=== PATIENT | male | born 1975 | race Caucasian/White ===

== ENCOUNTER 2022-01-31 14:58 | Emergency (ER) | payer OTHER, SELFPAY ==
--- NOTE | ~2022-01-31 | CT_ITS ---
EXAMINATION: CT CERVICAL SPINE WITHOUT CONTRAST CLINICAL INFORMATION: Fall. Pain. COMPARISON: Cervical spine MRI May 2017 TECHNIQUE: Axial images through the cervical spine without contrast. Sagittal and coronal reconstructions on the technologist workstation were performed. This CT examination was performed using dose optimization techniques as appropriate, variously including the following: *Automated exposure control *Adjustment of mA and/or kV according to patient size (this includes techniques or standardized protocols for targeted exams where dose is matched to indication/reason for exam; i.e. extremities or head) *Use of iterative reconstruction technique DLP: 543 mGy-cm FINDINGS: Bone alignment is normal. No fracture or dislocation is seen. There is postsurgical change following laminectomy at C5 and C6. There is degenerative disc disease at C5-C6. There is degenerative spondylosis at C4-C5 C5-C6 and C6-C7. Prevertebral soft tissues are normal. Visualized lung apices are clear. CT/CT cervical spine wo con IMPRESSION: No fracture or dislocation. Postsurgical changes following laminectomy at C5-C6. Degenerative changes. Fleischner guidelines were followed.
--- NOTE | ~2022-01-31 | CT_ITS ---
EXAMINATION: CT HEAD WITHOUT CONTRAST CLINICAL INFORMATION: Fall COMPARISON: None TECHNIQUE: Contiguous axial imaging was performed from the skull base to vertex without intravenous administration of contrast. This CT examination was performed using dose optimization techniques as appropriate, variously including the following: *Automated exposure control *Adjustment of mA and/or kV according to patient size (this includes techniques or standardized protocols for targeted exams where dose is matched to indication/reason for exam; i.e. extremities or head) *Use of iterative reconstruction technique DLP: 831 mGy-cm FINDINGS: There is no evidence of acute intracranial hemorrhage or territorial infarction. No abnormal mass effect or midline shift is seen. Chase to white matter differentiation is well preserved. No extra-axial fluid collections are identified. The ventricles are normal in size. There is no abnormal attenuation within the brain parenchyma. The osseous structures and soft tissues are normal. The mastoid air cells and visualized portions of the paranasal sinuses are well aerated. CT/CT head/brain wo con IMPRESSION: No acute intracranial pathology.
--- NOTE | ~2022-01-31 | CT_ITS ---
EXAMINATION: CT LUMBAR SPINE WITHOUT CONTRAST CLINICAL INFORMATION: Fall. Back pain. COMPARISON: None available. TECHNIQUE: Multidetector helical imaging of the lumbar spine was obtained without intravenous contrast. Multiple axial reformats and coronal/sagittal reconstructions were created the technologist workstation for review. This CT examination was performed using dose optimization techniques as appropriate, variously including the following: *Automated exposure control. *Adjustment of mA and/or kV according to patient size (this includes techniques or standardized protocols for targeted exams where dose is matched to indication/reason for exam; i.e. extremities or head). *Use of iterative reconstruction technique. DLP: 633 mGy-cm FINDINGS: Transitional vertebral anatomy. There is a small right-sided rib associated with the T12 level. There is sacralization of L5 with pseudoarticulation of the L5 transverse processes with the sacral alae. Instrumented posterior fusion of T10 through the pelvis with bilateral paired interpedicular screws at T10-L1, L5, and S1. There are also bilateral innominate bone screws associated with the fusion construct. Status post total L2 and L3 corpectomies as well as partial L1 and L4 corpectomies. The posterior elements of L2-L4 have also largely been resected. Bone graft material within the corpectomy cavity bridging the remnant of the L1 and L4 vertebral bodies. There is a L4-L5 disc spacer in place. Left lateral fusion hardware with 2 parallel screw and mannie constructs from L1-L4. Minimally displaced fracture of the left-sided posterior fusion mannie above the left-sided L5 screw. No evidence of additional hardware fracture. Minimal lucency surrounding the left-sided T10 screw. No additional evidence of hardware loosening. No demonstrated acute fracture or traumatic subluxation. The lower thoracic spine vertebral body heights are maintained. No evidence of acute fracture of the sacrum. No demonstrated suspicious lytic or sclerotic osseous lesions. Moderate subcutaneous edema within the soft tissues of the back related to the prior surgery. Evaluation of the spinal canal is highly limited secondary to beam hardening artifact from the patient's hardware. Splenomegaly. Otherwise, limited evaluation of the intra-abdominal structures without significant abnormalities. Infrarenal IVC filter in place. The abdominal aorta is of normal contour and caliber with moderate calcific atherosclerotic disease. CT/CT lumbar spine wo con IMPRESSION: Extensive fusion hardware from T10 through the pelvis. Near complete resections of the L2 and L3 vertebrae. There are also been partial corpectomies of the L1 and L4 vertebrae. Bone graft material is positioned bridging the remnant L1 and L4 vertebral bodies. There is a minimally displaced fracture of the left-sided posterior fusion mannie just above the left-sided L5 screw. There is evidence of minimal loosening of the left-sided T10 screw. No evidence of additional hardware loosening or fractures. On this limited exam without intrathecal contrast, there are no additional demonstrated acute abnormalities of the lumbar spine. No overt acute fracture or traumatic subluxation. Nonspecific splenomegaly.
--- NOTE | ~2022-01-31 | CT_ITS ---
EXAMINATION: CT THORACIC SPINE WITHOUT CONTRAST CLINICAL INFORMATION: Fall. Back pain. COMPARISON: None TECHNIQUE: Axial images through the thoracic spine without contrast. Sagittal and coronal reconstructions on the technologist workstation were performed. This CT examination was performed using dose optimization techniques as appropriate, variously including the following: *Automated exposure control *Adjustment of mA and/or kV according to patient size (this includes techniques or standardized protocols for targeted exams where dose is matched to indication/reason for exam; i.e. extremities or head) *Use of iterative reconstruction technique DLP: 603 mGy-cm FINDINGS: Bone alignment is normal. No fracture or dislocation is seen. There is posterior fusion hardware with rods and interpedicular screws at T12, T11 and T10. There is mild degenerative spondylosis of the midthoracic spine. There is a focal pleural thickening that is incompletely visualized adjacent to the left upper lobe. There is peripheral or subpleural left lower lobe atelectasis or consolidation. There is a small 2 mm right upper lobe nodule. CT/CT thoracic spine wo con IMPRESSION: No fracture or dislocation. Postsurgical changes to the lower thoracic spine. Left lower lobe peripheral or subpleural atelectasis or consolidation and pleural thickening adjacent to the left upper lobe. Small right upper lobe pulmonary nodule. Fleischner guidelines were followed.
[2022-01-31 15:10] VITALS: BP 170/103; PULSE 99; O2SAT 100
[2022-01-31 15:14] VITALS: BP 150/98; PULSE 99; RESP 16; TEMP 37; O2SAT 100
[2022-01-31 15:16] VITALS: PULSE 99; RESP 16; TEMP 37; O2SAT 100; BMI 25.8
--- NOTE | 2022-01-31 15:17 | ED_ITS ---
HPI - General Adult General Chief complaint: Psychiatric Symptoms <DULCE Jeffery - Last Filed: 01/31/22 21:31> Stated complaint: OPIOID WITHDRAWAL ,WANTS HELP, W/C BOUND <DULCE Jeffery - Last Filed: 01/31/22 21:31> Time Seen by Provider: 01/31/22 15:17 <DULCE Jeffery - Last Filed: 01/31/22 21:31> Source: patient <DULCE Jeffery - Last Filed: 01/31/22 21:31> Mode of arrival: ambulatory <DULCE Jeffery - Last Filed: 01/31/22 21:31> Limitations: no limitations <DULCE Jeffery Last Filed: 01/31/22 21:31> History of Present Illness HPI narrative: Patient is a 46 year old male presenting to the emergency department today with generalized pain and possible opioid withdrawal. Patient states that a few days ago, he fell from sitting after taking his suboxone, and now his back hurts. Patient denies any lsos of conciousness with the incident. Patient states that he wants to be started back on Methadone but does not want to go to the clinic every day. Patient states that he has had multiple back surgeries at [facility] in [place] and he is concerned that since his back is hurting more now, something may be wrong. Patient states that he is supposed to be on Eliquis for blood clots and he has not been taking it because he hasn't had his medications in 10 days. Patient describes his back pain as in the middle to low part of his back, non-radiating, dull, and a 4/10 on the pain scale. Patient denies any dizziness, lightheadedness, abdominal pain, nausea, vomiting, fever, chills, blurry vision, double vision, loss of vision, chest pain, difficulty breathing, shortness of breath, night sweats, pain with urination, increased urinary frequency, increased urinary urgency, blood in his urine or stool, syncope or a near syncopal episode,, bowel incontinence, bladder incontinence, bowel retention, bladder retention, or any other complaints at this time. <DULCE Jeffery Last Filed: 01/31/22 21:31> Onset (ago): day(s) <DULCE Jeffery - Last Filed: 01/31/22 21:31> Location: back <DULCE Jeffery - Last Filed: 01/31/22 21:31> Radiation: non-radiation <DULCE Jeffery - Last Filed: 01/31/22 21:31> Severity: mild <DULCE Jeffery - Last Filed: 01/31/22 21:31> Severity scale (1-10): 4 <DULCE Jeffrey - Last Filed: 01/31/22 21:31> Quality: dull <DULCE Jeffery - Last Filed: 01/31/22 21:31> Pain Consistency: constant <DULCE Jeffery - Last Filed: 01/31/22 21:31> Relieving factors: none <DULCE Jeffery - Last Filed: 01/31/22 21:31> Exacerbating factors: movement <DULCE Jeffery - Last Filed: 01/31/22 21:31> Associated symptoms: denies other symptoms <DULCE Jeffery - Last Filed: 01/31/22 21:31> Related Data Allergies/adverse reactions: Allergies Allergy/AdvReac Type Severity Reaction Status Date / Time fish derived AdvReac Unknown VOMIT Unverified 08/06/20 14:38 Penicillins [PENICILLINS] AdvReac Unknown VOMIT Unverified 08/06/20 14:38 <DULCE Jeffery - Last Filed: 01/31/22 21:31> Review of Systems Constitutional: Constitutional: Reports no additional constitutional complaints, Denies chills, Denies fever(s) and Denies night sweats <DULCE Jeffery - Last Filed: 01/31/22 21:31> Eyes: Eyes: Reports no additional eye complaints, Denies blurry vision, Denies change in vision, Denies diplopia, Denies eye discharge, Denies loss of vision and Denies eye pain <DULCE Jeffery - Last Filed: 01/31/22 21:31> ENT: Denies dizziness <DULCE Jeffery - Last Filed: 01/31/22 21:31> Cardiovascular: Cardiovascular: Reports no additional cardiovascular complaints, Denies chest pain, Denies lightheadedness, Denies Loss of Consciousness and Denies dyspnea <DULCE Jeffery - Last Filed: 01/31/22 21:31> Respiratory: Respiratory: Reports no additional respiratory complaints and Denies dyspnea <DULCE Jeffery - Last Filed: 01/31/22 21:31> Gastrointestinal: Gastrointestinal: Reports no additional gastrointestinal complaints, Denies abdominal pain, Denies melena, Denies hematochezia, Denies change in bowel habits and Denies change in stool character <DULCE Jeffery - Last Filed: 01/31/22 21:31> Genitourinary: Genitourinary: Reports no additional male genitourinary complaints, Denies hematuria, Denies oliguria, Denies difficulty urinating, Denies dysuria, Denies urinary frequency, Denies urinary hesitancy, Denies urinary incontinence and Denies urinary urgency <DULCE Jeffery - Last Filed: 01/31/22 21:31> Musculoskeletal: Musculoskeletal: Reports no additional musculoskeletal complaints, Reports back pain, Denies numbness and Denies tingling <DULCE Jeffery - Last Filed: 01/31/22 21:31> Neurologic: Denies dizziness, Denies loss of vision, Denies numbness and Denies tingling <DULCE Jeffery - Last Filed: 01/31/22 21:31> Psychiatric: Psychiatric: Reports no additional psychiatric complaints <DULCE Jeffery Last Filed: 01/31/22 21:31> Endocrine: Endocrine: Reports no additional endocrine complaints <DULCE Jeffery - Last Filed: 01/31/22 21:31> Hematologic/Lymphatic: Hematologic/Lymphatic: Reports no additional hematologic/lymphatic complaints <DULCE Jeffery - Last Filed: 01/31/22 21:31> Allergic/Immunologic: Allergic/Immunologic: Reports no additional allergic/immunologic complaints <DULCE Jeffery - Last Filed: 01/31/22 21:31> PMFSH Past Medical History Attestation statement: The following information was validated with the patient. <DULCE Jeffery - Last Filed: 01/31/22 21:31> Source: old records reviewed <DULCE Jeffery Last Filed: 01/31/22 21:31> Social History Social History: Social History Alcohol intake: never Patient Tobacco Use Status: Current everyday Tobacco user Use of substances other than those prescribed or required for medical reasons: Yes Substance Use Type: Crack/Cocaine and Opiates Last Used Substance: Days (ago) Any prior treatment program specific to substance use: Yes Advance Directives: No Advance Directives Information Provided: No <DULCE Jeffery - Last Filed: 01/31/22 21:31> Physical Exam ED Vital Signs: Vital Signs - 24 hr 01/31/22 15:14 01/31/22 15:16 01/31/22 18:00 Temperature 98.6 F 98.6 F Pulse Rate 99 99 90 Respiratory Rate 16 16 20 Blood Pressure 150/98 H 141/79 H Pulse Oximetry 100 100 100 01/31/22 20:00 01/31/22 20:08 Temperature Pulse Rate 91 Respiratory Rate 16 Blood Pressure 141/79 H Pulse Oximetry 99 BMI result Body Mass Index 25.8 <DULCE Jeffery - Last Filed: 01/31/22 21:31> Vital Signs - 24 hr 01/31/22 15:14 01/31/22 15:16 01/31/22 18:00 Temperature 98.6 F 98.6 F Pulse Rate 99 99 90 Respiratory Rate 16 16 20 Blood Pressure 150/98 H 141/79 H Pulse Oximetry 100 100 100 01/31/22 20:00 01/31/22 20:08 Temperature Pulse Rate 91 Respiratory Rate 16 Blood Pressure 141/79 H Pulse Oximetry 99 BMI result Body Mass Index 25.8 <Reji Dixon MD - Last Filed: 01/31/22 18:40> Const General: cooperative, no acute distress, alert and awake <DULCE Jeffery - Last Filed: 01/31/22 21:31> Nutritional Appearance: well nourished <DULCE Jeffery - Last Filed: 01/31/22 21:31> Orientation/consciousness: patient oriented x3 <DULCE Jeffery - Last Filed: 01/31/22 21:31> Limitations: no limitations <DULCE Jeffery - Last Filed: 01/31/22 21:31> HENMT Head: Yes normal to inspection and Yes atraumatic <DULCE Jfefery - Last Filed: 01/31/22 21:31> Ears: hearing grossly normal bilaterally and external ears normal <Lupe Wilde PA - Last Filed: 01/31/22 21:31> General nose exam: Normal external nose present, no nasal discharge noted and no epistaxis <Lupe Wilde PA - Last Filed: 01/31/22 21:31> Face and sinus: Yes normal facial exam, No abrasion and No laceration <Lupe Wilde PA - Last Filed: 01/31/22 21:31> Mouth: Normal oral and palatal mucosa present, no drooling and no muffled voice <Lupe Wilde PA - Last Filed: 01/31/22 21:31> Eyes General: appearance normal, both eyes and all related structures <Lupe Wilde PA - Last Filed: 01/31/22 21:31> Periorbital: periorbital findings normal <Lupe Wilde PA - Last Filed: 01/31/22 21:31> Eyelids: Yes eyelids normal <Lupe Wilde PA - Last Filed: 01/31/22 21:31> Conjunctivae: conjunctivae normal <Lupe Wilde PA - Last Filed: 01/31/22 21:31> Pupils: Equal, round and reactive pupils present <Lupe Wilde PA - Last Filed: 01/31/22 21:31> EOM: EOMs intact bilaterally <Lupe Wilde PA - Last Filed: 01/31/22 21:31> Neck Neck: Yes normal visual inspection, Yes full ROM and Yes no lymphadenopathy <Lupe Wilde PA - Last Filed: 01/31/22 21:31> Chest Chest palpation & inspection: normal inspection of the chest <DULCE Jeffery - Last Filed: 01/31/22 21:31> Resp Effort & Inspection: normal respiratory effort and able to speak in complete sentences <DULCE Jeffery - Last Filed: 01/31/22 21:31> Auscultation: clear to auscultation bilaterally <DULCE Jeffery - Last Filed: 01/31/22 21:31> Cardio Rate: regular rate <DULCE Jeffery - Last Filed: 01/31/22 21:31> Rhythm: regular rhythm <Lupe Wilde PA - Last Filed: 01/31/22 21:31> GI Inspection: Yes normal to inspection <Lupe WildeDULCE - Last Filed: 01/31/22 21:31> Back/Spine/Pelvis Other: tenderness to palpation around the L4-L5 level <Lupe Wilde PA - Last Filed: 01/31/22 21:31> Neuro General: patient oriented x3 and moves all extremities <Lupe Jamessylvie PA - Last Filed: 01/31/22 21:31> Cranial nerves: Yes Equal, round and reactive pupils present <Lupe Wilde PA - Last Filed: 01/31/22 21:31> Cognition (Neuro): normal cognition <Lupe Jamessylvie PA - Last Filed: 01/31/22 21:31> Motor exam (neuro): 5/5 motor strength present throughout <Lupe Wilde PA - Last Filed: 01/31/22 21:31> Sensory Exam: Normal double simultaneous stimulation for sensation <Lupe Jamessylvie PA - Last Filed: 01/31/22 21:31> Coordination: [id number] test normal <Lupe Jamessylvie PA - Last Filed: 01/31/22 21:31> Extrem General: Yes normal to inspection, Yes full ROM and Yes capillary refill normal <Lupe Jamessylvie PA - Last Filed: 01/31/22 21:31> Psych Appearance: grossly normal <Lupe Jamessylvie PA - Last Filed: 01/31/22 21:31> Mental Status: mental status grossly normal <Lupe Jamessylvie PA - Last Filed: 01/31/22 21:31> Affect: normal affect <Lupe Jamessylvie PA - Last Filed: 01/31/22 21:31> Attitude: cooperative <Lupe Jamessylvie PA - Last Filed: 01/31/22 21:31> Thought process: Normal thought process present <Lupe DULCE Wilde - Last Filed: 01/31/22 21:31> Thought content: Normal thought content present <Lupe DULCE Wilde - Last Filed: 01/31/22 21:31> Insight: Good insight present (Psych) <Lupe Chani PA - Last Filed: 01/31/22 21:31> Course Reevaluation(s) Reevaluation #1: I have discussed the plan with Lupe CARDONA and agree <Reji nguyen MD - Last Filed: 01/31/22 18:40> Time: 18:40 <Reji Dixon MD - Last Filed: 01/31/22 18:40> Consultations Consultation #1: [facility] called. Took patient information and states they will call back. <DULCE Jeffery - Last Filed: 01/31/22 21:31> Time: 18:37 <DULCE Jeffery - Last Filed: 01/31/22 21:31> Consultation #2: Spoke to [facility] who declined to take the patient. <DULCE Jeffery - Last Filed: 01/31/22 21:31> Time: 19:15 <DULCE Jeffery - Last Filed: 01/31/22 21:31> Consultation #3: Spoke to Dr. Cervantes at [facility] who agreed to transfer of the patient to their ED for a trauma consult. <DULCE Jeffery - Last Filed: 01/31/22 21:31> Time: 19:30 <DULCE Jeffery - Last Filed: 01/31/22 21:31> Medical Decision Making MDM Narrative Medical decision making narrative: Patient is a 46 year old male presenting to the emergency department today with back pain and requesting methadone. Patient's physical exam showed mild tenderness to palpation of the spine at the L4-L5 level but was otherwise unremarkable. Patient's neurological examination was normal. Patient's blood work was unremarkable. Patient's CT of the lumbar spine showed an acute fracture of the L5. Patient's CT of the thoracic spine showed a loose screw at the T10 level. Patient's CT head and C-spine were negative for any acute process. I explained my physical exam findings as well as all test results to the patient. I answered all questions asked by the patient. Patient received PO Methadone which he stated helped his pain significantly. Initially, I called [facility], where the patient had his multiple back surgeries. They informed me that they are on bypass to everyone except multi-process trauma, of which this patient is not. I then spoke to [facility], specifically to Dr. Cervantes, who agreed to the transfer of this patient to their ED for a trauma consult. Patient verbalized agreement and understanding with this treatment plan and transfer. <DULCE Jeffery - Last Filed: 01/31/22 21:31> Differential Diagnosis Differential Diagnosis: lumbar fracture, throacic fracture, back pain, opiate withdrawal <DULCE Jeffery - Last Filed: 01/31/22 21:31> Medical Records Medical records reviewed: Yes I reviewed the patient's medical records. <DULCE Jeffery - Last Filed: 01/31/22 21:31> Lab Data Lab results reviewed: Yes I reviewed the patient's lab results. <DULCE Jeffery - Last Filed: 01/31/22 21:31> Result diagrams: : 01/31/22 17:21 01/31/22 17:21 <DULCE Jeffery - Last Filed: 01/31/22 21:31> Labs: Lab Results 01/31/22 01/31/22 01/31/22 Range/Units 17:21 17:21 18:27 WBC 4.3 L (4.8-10.8) X10*3/uL RBC 5.10 (4.60-5.80) X10*6/uL Hgb 12.0 L (14.0-18.0) g/dl Hct 40.4 L (42.0-52.0) % MCV 79.2 L (80.0-98.0) fL MCH 23.5 L (27.0-33.0) pg MCHC 29.7 L (31.0-36.0) g/dl RDW 18.7 H (11.0-16.0) % Plt Count 85 L (160-400) X10*3/uL MPV 10.1 (9.4-12.4) fL Immature Gran % (Auto) 0.5 H (0.0-0.4) % Neut % (Auto) 71.5 (45-73) % Lymph % (Auto) 17.1 L (20-40) % [place] % (Auto) 8.4 (2-11) % Eos % (Auto) 2.3 (0-4) % Baso % (Auto) 0.2 (0-2) % Lymph # (Auto) 0.7 L (1.2-4.9) X10*3/uL [place] # (Auto) 0.4 (0.1-1.2) X10*3/uL Eos # (Auto) 0.1 (0.0-0.4) X10*3/uL Baso # (Auto) 0.0 (0.0-0.2) X10*3/uL Abs Immat Gran (auto) 0.02 (0.00-0.03) X10*3/uL Absolute Neuts (auto) 3.1 (2.0-8.3) x10*3/uL Absolute Nucleated RBC 0.000 (0.0-0.012) X10*3/uL Nucleated RBC % (auto) 0.0 (0.0-0.2) /100WBC Smear Tech's Comments VERIFIED Sodium 142 (135-145) mmol/L Potassium 3.6 (3.3-5.1) mmol/L Chloride 108 (96-108) mmol/L Carbon Dioxide 23 (22-29) mmol/L Anion Gap 15 (12-20) BUN 11 (9-16) mg/dL Creatinine 1.09 (0.5-1.4) mg/dL Estim Creat Clear Calc 88.3 Estimated GFR > 60 Fasting Glucose 112 H (60-99) mg/dL Calcium 8.8 (8.4-10.2) mg/dL Magnesium 1.9 (1.6-2.6) mg/dL Total Bilirubin 0.3 (0.0-1.0) mg/dL AST 14 (5-37) U/L ALT 8 (0-40) U/L Alkaline Phosphatase 105 (39-117) U/L Total Protein 6.9 (6.5-8.0) g/dL Albumin 3.5 (3.5-5.0) g/dL COVID-19 (DAGMAR) Negative (Negative) COVID-19 Clin Com See Note <DULCE Jeffery - Last Filed: 01/31/22 21:31> Lab Results 01/31/22 01/31/22 01/31/22 Range/Units 17:21 17:21 18:27 WBC 4.3 L (4.8-10.8) X10*3/uL RBC 5.10 (4.60-5.80) X10*6/uL Hgb 12.0 L (14.0-18.0) g/dl Hct 40.4 L (42.0-52.0) % MCV 79.2 L (80.0-98.0) fL MCH 23.5 L (27.0-33.0) pg MCHC 29.7 L (31.0-36.0) g/dl RDW 18.7 H (11.0-16.0) % Plt Count 85 L (160-400) X10*3/uL MPV 10.1 (9.4-12.4) fL Immature Gran % (Auto) 0.5 H (0.0-0.4) % Neut % (Auto) 71.5 (45-73) % Lymph % (Auto) 17.1 L (20-40) % [place] % (Auto) 8.4 (2-11) % Eos % (Auto) 2.3 (0-4) % Baso % (Auto) 0.2 (0-2) % Lymph # (Auto) 0.7 L (1.2-4.9) X10*3/uL [place] # (Auto) 0.4 (0.1-1.2) X10*3/uL Eos # (Auto) 0.1 (0.0-0.4) X10*3/uL Baso # (Auto) 0.0 (0.0-0.2) X10*3/uL Abs Immat Gran (auto) 0.02 (0.00-0.03) X10*3/uL Absolute Neuts (auto) 3.1 (2.0-8.3) x10*3/uL Absolute Nucleated RBC 0.000 (0.0-0.012) X10*3/uL Nucleated RBC % (auto) 0.0 (0.0-0.2) /100WBC Smear Tech's Comments VERIFIED Sodium 142 (135-145) mmol/L Potassium 3.6 (3.3-5.1) mmol/L Chloride 108 (96-108) mmol/L Carbon Dioxide 23 (22-29) mmol/L Anion Gap 15 (12-20) BUN 11 (9-16) mg/dL Creatinine 1.09 (0.5-1.4) mg/dL Estim Creat Clear Calc 88.3 Estimated GFR > 60 Fasting Glucose 112 H (60-99) mg/dL Calcium 8.8 (8.4-10.2) mg/dL Magnesium 1.9 (1.6-2.6) mg/dL Total Bilirubin 0.3 (0.0-1.0) mg/dL AST 14 (5-37) U/L ALT 8 (0-40) U/L Alkaline Phosphatase 105 (39-117) U/L Total Protein 6.9 (6.5-8.0) g/dL Albumin 3.5 (3.5-5.0) g/dL COVID-19 (DAGMAR) Negative (Negative) COVID-19 Clin Com See Note <Reji Dixon MD - Last Filed: 01/31/22 18:40> Imaging Data CT scan - head: Attestation: I personally reviewed and interpreted this imaging study as follows: <DULCE Jeffery - Last Filed: 01/31/22 21:31> My impression: Negative for any acute process <DULCE Jeffery - Last Filed: 01/31/22 21:31> Radiologist's impression: EXAMINATION: CT HEAD WITHOUT CONTRAST CLINICAL INFORMATION: Fall? COMPARISON: None TECHNIQUE: Contiguous axial imaging was performed from the skull base to vertex without intravenous administration of contrast. This CT examination was performed using dose optimization techniques as appropriate, variously including the following: *Automated exposure control *Adjustment of mA and/or kV according to patient size (this includes techniques or standardized protocols for targeted exams where dose is matched to indication/reason for exam; i.e. extremities or head) *Use of iterative reconstruction technique DLP: 831 mGy-cm FINDINGS: There is no evidence of acute intracranial hemorrhage or territorial infarction. No abnormal mass effect or midline shift is seen. Chase to white matter differentiation is well preserved. No extra-axial fluid collections are identified. The ventricles are normal in size. There is no abnormal attenuation within the brain parenchyma. The osseous structures and soft tissues are normal. The mastoid air cells and visualized portions of the paranasal sinuses are well aerated. CT/CT head/brain wo con IMPRESSION: No acute intracranial pathology. Dictated By: Shelli Rosas MD Signed By: Electronically signed by Shelli Rosas MD 01/31/22 [id number] <DULCE Jeffery Last Filed: 01/31/22 21:31> CT C-spine: Attestation: I personally reviewed and interpreted this imaging study as follows: <DULCE Jeffery - Last Filed: 01/31/22 21:31> My impression: No acute fractures. <DULCE Jeffery - Last Filed: 01/31/22 21:31> Radiologist's impression: EXAMINATION: CT CERVICAL SPINE WITHOUT CONTRAST CLINICAL INFORMATION: Fall. Pain.? COMPARISON: Cervical spine MRI May 2017? TECHNIQUE: Axial images through the cervical spine without contrast. Sagittal and coronal reconstructions on the technologist workstation were performed. This CT examination was performed using dose optimization techniques as appropriate, variously including the following: *Automated exposure control *Adjustment of mA and/or kV according to patient size (this includes techniques or standardized protocols for targeted exams where dose is matched to indication/reason for exam; i.e. extremities or head) *Use of iterative reconstruction technique DLP: 543 mGy-cm FINDINGS: Bone alignment is normal. No fracture or dislocation is seen. There is postsurgical change following laminectomy at C5 and C6. There is degenerative disc disease at C5-C6. There is degenerative spondylosis at C4-C5 C5-C6 and C6-C7. Prevertebral soft tissues are normal. Visualized lung apices are clear. CT/CT cervical spine wo con IMPRESSION: No fracture or dislocation. Postsurgical changes following laminectomy at C5-C6. Degenerative changes. ? Fleischner guidelines were followed. Dictated By: Shelli Rosas MD Signed By: Electronically signed by Shelli Rosas MD 01/31/22 1643 <DULCE Jeffery - Last Filed: 01/31/22 21:31> CT lumbar and throacic spine: Attestation: I personally reviewed and interpreted this imaging study as follows: <DULCE Jeffery - Last Filed: 01/31/22 21:31> Radiologist's impression: EXAMINATION: CT LUMBAR SPINE WITHOUT CONTRAST CLINICAL INFORMATION: Fall. Back pain. COMPARISON: None available. TECHNIQUE: Multidetector helical imaging of the lumbar spine was obtained without intravenous contrast. Multiple axial reformats and coronal/sagittal reconstructions were created the technologist workstation for review. This CT examination was performed using dose optimization techniques as appropriate, variously including the following: *Automated exposure control. *Adjustment of mA and/or kV according to patient size (this includes techniques or standardized protocols for targeted exams where dose is matched to indication/reason for exam; i.e. extremities or head). *Use of iterative reconstruction technique. DLP: 633 mGy-cm FINDINGS: Transitional vertebral anatomy. There is a small right-sided rib associated with the T12 level. There is sacralization of L5 with pseudoarticulation of the L5 transverse processes with the sacral alae. Instrumented posterior fusion of T10 through the pelvis with bilateral paired interpedicular screws at T10-L1, L5, and S1. There are also bilateral innominate bone screws associated with the fusion construct. Status post total L2 and L3 corpectomies as well as partial L1 and L4 corpectomies. The posterior elements of L2-L4 have also largely been resected. Bone graft material within the corpectomy cavity bridging the remnant of the L1 and L4 vertebral bodies. There is a L4-L5 disc spacer in place. Left lateral fusion hardware with 2 parallel screw and mannie constructs from L1-L4. Minimally displaced fracture of the left-sided posterior fusion mannie above the left-sided L5 screw. No evidence of additional hardware fracture. Minimal lucency surrounding the left-sided T10 screw. No additional evidence of hardware loosening. No demonstrated acute fracture or traumatic subluxation. The lower thoracic spine vertebral body heights are maintained. No evidence of acute fracture of the sacrum. No demonstrated suspicious lytic or sclerotic osseous lesions. Moderate subcutaneous edema within the soft tissues of the back related to the prior surgery. Evaluation of the spinal canal is highly limited secondary to beam hardening artifact from the patient's hardware. Splenomegaly. Otherwise, limited evaluation of the intra-abdominal structures without significant abnormalities. Infrarenal IVC filter in place. The abdominal aorta is of normal contour and caliber with moderate calcific atherosclerotic disease. CT/CT lumbar spine wo con IMPRESSION: Extensive fusion hardware from T10 through the pelvis. Near complete resections of the L2 and L3 vertebrae. There are also been partial corpectomies of the L1 and L4 vertebrae. Bone graft material is positioned bridging the remnant L1 and L4 vertebral bodies. ? There is a minimally displaced fracture of the left-sided posterior fusion mannie just above the left-sided L5 screw. There is evidence of minimal loosening of the left-sided T10 screw. No evidence of additional hardware loosening or fractures. ? On this limited exam without intrathecal contrast, there are no additional demonstrated acute abnormalities of the lumbar spine. No overt acute fracture or traumatic subluxation. ? Nonspecific splenomegaly. Dictated By: ANKUR DIAZ DO Signed By: Electronically signed by ANKUR DIAZ DO 01/31/22 1806 <DULCE Jeffery - Last Filed: 01/31/22 21:31> Critical Care Time Critical Care Time Critical Care Time: Yes <DULCE Jeffery - Last Filed: 01/31/22 21:31> Total Critical Care Time: 30 <DULCE Jeffery - Last Filed: 01/31/22 21:31> Attestation: I spent 30 minutes of Critical Care Time with this patient. This does not include time spent on separately reported billable procedures. <DULCE Jeffery - Last Filed: 01/31/22 21:31> Discharge Plan Discharge Clinical Impression: L5 vertebral fracture, History of spinal surgery, Loosening of hardware in spine, Opioid abuse <DULCE Jeffery - Last Filed: 01/31/22 21:31> Patient Disposition: [facility] <DULCE Jeffery - Last Filed: 01/31/22 21:31> Transfer Details: Transferred to [facility] for trauma consult. <DULCE Jeffery - Last Filed: 01/31/22 21:31> Transferred to [facility] for trauma consult. <Reji Dixon MD - Last Filed: 01/31/22 18:40> Print Language: American <DULCE Jeffery - Last Filed: 01/31/22 21:31>
[2022-01-31] MEDS: 0.9 % Sodium Chloride 1,000 ML 999 ML IVCONT (16:45)
[2022-01-31 17:36] LABS: Basophils Percent Auto 0.2 % (0-2); Eosinophils Absolute Auto 0.1 X10*3/uL (0.0-0.4); Eosinophils Percent Auto 2.3 % (0-4); Lymphocytes Absolute Auto 0.7 X10*3/uL (1.2-4.9); Lymphocytes Percent Auto 17.1 % (20-40); Red Cell Distribution Width 18.7 % (11.0-16.0); SCAN SMEAR FLAG 1
[2022-01-31 17:38] LABS: Hematocrit 40.4 % (42.0-52.0); Imm Gran Abs Auto 0.02 X10*3/uL (0.00-0.03); Imm Gran Pct Auto 0.5 % (0.0-0.4); MANUAL DIFF FLAG SCAN; Mean Corpuscular HGB Conc 29.7 g/dl (31.0-36.0); Mean Corpuscular Hemoglobin 23.5 pg (27.0-33.0); Mean Corpuscular Volume 79.2 fL (80.0-98.0); Mean Platelet Volume 10.1 fL (9.4-12.4); Monocytes Absolute Auto 0.4 X10*3/uL (0.1-1.2); Monocytes Percent Auto 8.4 % (2-11); Neutrophils Absolute Auto 3.1 x10*3/uL (2.0-8.3); Neutrophils Percent Auto 71.5 % (45-73); White Blood Count 4.3 X10*3/uL (4.8-10.8)
[2022-01-31 17:42] LABS: PLT ABN DIST 1
[2022-01-31 17:46] LABS: Alanine Aminotransferase 8 U/L (0-40); Albumin Level 3.5 g/dL (3.5-5.0); Alkaline Phosphatase 105 U/L (39-117); Anion Gap 15 (12-20); Aspartate Amino Transferase 14 U/L (5-37); Bilirubin Total 0.3 mg/dL (0.0-1.0); Blood Urea Nitrogen 11 mg/dL (9-16); Calcium 8.8 mg/dL (8.4-10.2); Carbon Dioxide 23 mmol/L (22-29); Chloride 108 mmol/L (96-108); Creatinine Clr Calc Pharmacy 88.3; Estimated Glomerular Filt Rate > 60; Glucose Fasting 112 mg/dL (60-99); Magnesium 1.9 mg/dL (1.6-2.6); Potassium 3.6 mmol/L (3.3-5.1); Sodium 142 mmol/L (135-145); Total Protein 6.9 g/dL (6.5-8.0)
[2022-01-31 18:00] VITALS: BP 141/79; PULSE 90; RESP 20; O2SAT 100
[2022-01-31 18:06] LABS: Platelet Count 85 X10*3/uL (160-400); SLIDE REVIEW VERIFIED
[2022-01-31] MEDS: methADONE HCl 20 MG/2 ML ORAL.CONC PO (18:56)
[2022-01-31 19:03] LABS: COVID-19 Test Negative (Negative)
[2022-01-31 20:00] VITALS: BP 141/79; PULSE 91; RESP 16
[2022-01-31] MEDS: LORazepam 2 MG/ML VIAL IVPUSH (20:05)
[2022-01-31 20:08] VITALS: O2SAT 99
--- NOTE | 2022-01-31 20:29 | PC.NURSE ---
PT transfered to [facility] nurse to nurse report given to Clara at 2019. pt medicated with ativan for the ride. 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 vitals stable alert oriented, skin pink warm and dry. iv in place patient.
== END 2022-01-31 21:00 | disposition short-term general hospital (02) ==
PROVIDERS: Physician Assistant Medical; Emergency Provider Internal Medicine
DX: S32.059A Unspecified fracture of fifth lumbar vertebra, initial encounter for closed fracture (principal); T84.296A Other mechanical complication of internal fixation device of vertebrae, initial encounter; Y72.2 Prosthetic and other implants, materials and accessory otorhinolaryngological devices associated with adverse incidents; W05.0XXA Fall from non-moving wheelchair, initial encounter; F11.20 Opioid dependence, uncomplicated; F17.200 Nicotine dependence, unspecified, uncomplicated; Z20.822 Contact with and (suspected) exposure to COVID-19; Y93.9 Activity, unspecified; Y92.9 Unspecified place or not applicable; Y99.9 Unspecified external cause status
CPT/HCPCS: 36415; 70450; 72125; 72128; 72131; 80053; 83735; 85025; 87635; 96361; 96374; 99285; J2060

== ENCOUNTER 2022-02-10 17:49 | Emergency (ER) | payer OTHER, SELFPAY ==
--- NOTE | ~2022-02-10 | CT_ITS ---
EXAMINATION: CT LUMBAR SPINE WITHOUT CONTRAST CLINICAL INFORMATION: Increase back pain COMPARISON: CT lumbar spine 01/31/2022 TECHNIQUE: 2 minutes thin axial and reformatted 2 minutes thin sagittal and coronal images of lumbar spine were obtained without contrast. This CT examination was performed using dose optimization techniques as appropriate, variously including the following: *Automated exposure control *Adjustment of mA and/or kV according to patient size (this includes techniques or standardized protocols for targeted exams where dose is matched to indication/reason for exam; i.e. extremities or head) *Use of iterative reconstruction technique DLP; 646 mGy-cm FINDINGS: There is abnormal segmentation of lumbar spine with sacralized L5 vertebra and a small right T12 rib. There is total. L2 and L3 and partial L1 and L4 corpectomies with long bone graft to the right of the midline. The fusion is stabilized with bilateral pedicular screws from T10, T11, L1, L4 and L5 screws with interconnecting rods. Also visualized are bilateral innominate screws.. A disc spacer is seen at the L4-L5 disc level prosthesis. There is a fracture bilateral vertical rods on sagittal image 36/8 and 67/8 and the level of L4-L5 disc level. Also visualized are left anterolateral 2 rods and screws extending from L3 to L5 vertebra. No change in bony hardware since 01/31/2022. The L5 and the lower thoracic vertebral heights are preserved normal. The disc heights are preserved normal. There is soft tissue edema along lower posterior lumbar spine. There is no vertebral body fractures seen the sacrum appears unremarkable. Visualized iliac bones and SI joints are unremarkable. The spinal canal cannot be evaluated due to significant beam hardening artifact throughout the mid lumbar spine. The lower thoracic and lower spinal canal is patent. There is a left lower lobe compressive atelectasis. Both kidneys are unremarkable. No prevertebral soft tissue swelling or mass seen. CT/CT lumbar spine wo con IMPRESSION: Corpectomy and bone graft insertion essentially L3 and L4 vertebra extending partially to L1 and L4 vertebra. The bone graft is supported by 2 long posterior [place] rods and screws. The 2 posterior vertical rods are fractured. The right mannie is newly fractured. Not much has changed in the left mannie fracture from the last exam 01/31/2022. Also visualized are 2 left anterolateral rods and screws which appear stable.
[2022-02-10 17:54] VITALS: BP 138/80; BP 143/94; PULSE 92; PULSE 93; RESP 18; TEMP 36.8; O2SAT 100; BMI 25.8
--- NOTE | 2022-02-10 19:03 | ED.BACK ---
HPI - Back Pain/Injury General Chief Complaint: Back Pain/Injury <Cuca De Santiago NP - Last Filed: 02/10/22 23:54> Stated Complaint: back pain s/p surgery <Cuca De Santiago NP - Last Filed: 02/10/22 23:54> Time Seen by Provider: 02/10/22 17:53 <Cuca De Santiago NP - Last Filed: 02/10/22 23:54> Source: patient and EMS <Cuca De Santiago NP - Last Filed: 02/10/22 23:54> Mode of arrival: EMS <Cuca De Santiago NP - Last Filed: 02/10/22 23:54> Limitations: no limitations <Cuca De Santiago NP - Last Filed: 02/10/22 23:54> History of Present Illness HPI Narrative: 46-year-old male presents via EMS for TAVR 10 back pain radiating down his leg. Reports that he had surgery at [facility] for a fractured spine and discharged on Monday. Stated that when his OVERCOIL STEPPER was at his home assisting him, he bent over, heard a snap and had 10/10 pain. <Cuca De Santiago NP - Last Filed: 02/10/22 23:54> MD elicited complaint: back pain and back injury <Cuca De Santiago NP - Last Filed: 02/10/22 23:54> Pertinent past history: prior back pain, recent trauma and back surgery <Cuca De Santiago NP - Last Filed: 02/10/22 23:54> Onset (ago): hour(s) (Several hours prior to arrival) <Cuca De Santiago NP - Last Filed: 02/10/22 23:54> Timing: constant and progressively worsening <Cuca De Santiago NP - Last Filed: 02/10/22 23:54> Severity: severe <Cuca De Santiago NP - Last Filed: 02/10/22 23:54> Pain scale (0-10): 10 <Cuca De Santiago NP - Last Filed: 02/10/22 23:54> Similar Symptoms Previously: Yes <Cuca De Santiago NP - Last Filed: 02/10/22 23:54> Quality: aching and throbbing <Cuca De Santiago NP - Last Filed: 02/10/22 23:54> Location: lumbar spine <Cuca De Santiago NP - Last Filed: 02/10/22 23:54> Radiation: right upper leg and right leg below the knee <Cuca De Santiago NP - Last Filed: 02/10/22 23:54> Exacerbating factors: movement <Cuca De Santiago NP - Last Filed: 02/10/22 23:54> Relieving factors: none <Cuca De Santiago NP - Last Filed: 02/10/22 23:54> Context: bending <Cuca De Santiago NP - Last Filed: 02/10/22 23:54> Associated symptoms: denies other symptoms <Cuca De Santiago NP - Last Filed: 02/10/22 23:54> Treatments prior to arrival: prescription analgesics <Cuca De Santiago NP - Last Filed: 02/10/22 23:54> Work related injury: No <Cuca De Santiago NP - Last Filed: 02/10/22 23:54> Related Data Allergies/Adverse Reactions: Allergies Allergy/AdvReac Type Severity Reaction Status Date / Time fish derived AdvReac Unknown VOMIT Verified 02/10/22 18:01 Penicillins [PENICILLINS] AdvReac Unknown VOMIT Verified 02/10/22 18:01 <Cuca De Santiago NP - Last Filed: 02/10/22 23:54> Review of Systems Review of Systems: Constitutional: No Weight loss, No Fever, No Chills, ENT/Mouth: No Hearing loss, No Ear Pain, No Nasal Congestion, No Sinus Pain, No Hoarseness, No sore throat, No Rhinorrhea, No Swallowing Difficulty Cardiovascular: No Chest Pain, No SOB Respiratory: No Cough, No Dyspnea Gastrointestinal: No Nausea, No Vomiting, No Diarrhea, No abdominal Pain, No Hematochezia, No Melena Genitourinary: No Dysuria, No Urinary Frequency, No Hematuria, No Urinary Incontinence, Musculoskeletal: positive back pain Skin: No Skin Lesions, No rash Neuro: No Weakness, No Numbness, No Paresthesias, no loss of bowel or bladder incontinence, no saddle anesthesia <Cuca De Santiago NP - Last Filed: 02/10/22 23:54> Yes all other systems are reviewed and are negative <Cuca De Santiago NP - Last Filed: 02/10/22 23:54> [facility] Past Medical History Attestation statement: The following information was validated with the patient. <Cuca De Santiago NP - Last Filed: 02/10/22 23:54> Source: old records reviewed <Cuca De Santiago NP - Last Filed: 02/10/22 23:54> Social History Social History: Social History Alcohol intake: never Patient Tobacco Use Status: Current everyday Tobacco user Substance Use Type: Crack/Cocaine and Opiates Advance Directives: No Advance Directives Information Provided: No <Cuca De Santiago NP - Last Filed: 02/10/22 23:54> Physical Exam Vital Signs: Vital Signs: Last Vital Signs Temp 97.9 F 02/10/22 20:19 Pulse 77 02/10/22 23:37 Resp 17 02/10/22 23:37 BP 140/84 H 02/10/22 23:37 Pulse Ox 100 02/10/22 23:37 BMI result Body Mass Index 25.8 <Cuca De Santiago NP - Last Filed: 02/10/22 23:54> Appearance: Alert. Oriented X3. Moderate distress. Eyes: Pupils equal, round and reactive to light. ENT: Pharynx normal. Neck: Normal inspection. Neck supple. CVS: Normal heart rate and rhythm. Pulses normal. Respiratory: No respiratory distress. Breath sounds normal. Abdomen: Soft and nontender. Skin: Skin warm and dry. Normal skin color. Normal skin turgor. Extremities: Moves all extremities, sensation intact bilaterally. Brisk capillary refill and equal pulses. Neuro: No motor deficit. No sensory deficit. Cranial nerves 2-12 intact. <Cuca De Santiago NP - Last Filed: 02/10/22 23:54> Course Course Course Narrative: 46-year-old male with recent back surgery completed at [facility], discharged on Monday, presents via EMS for 10/10 back pain after bending over and hearing a snap. During health history, patient had stated that ?he was not treated well at [facility]?, wanted to ?be transferred to [facility]? and did not feel that he receive proper care anywhere. States that he was discharged ?without pain medications? and feels that he was ?expected to return to the emergency department when he was going to opioid withdrawal? as he does receive prescriptions for fentanyl patch and Dilaudid from Dr. Leos. Patient has been prescribed Dilaudid 4 mg 120 tablets and fentanyl 50 mcg patches by Que Leos in [facility]. Last script filled was on 12/04/2021. Starting on 01/07/2022 he has been receiving Suboxone from the same provider. Patient also reported that he has ?family in [place]? and that they ?sent him morphine and injectable pain medication? that he has been using to help manage his pain and withdrawal symptoms. He states that the Suboxone that he was prescribed does not work very well for him, and feels that it delays his progress. He did stated that he relapsed however did not report how much heroin or opioids he was using. He does currently have a fentanyl patch to his left arm. Patient is asking for pain medication at this time, I am extraordinarily hesitant to give him any kind narcotics based on his description of his extracurricular habits. He also reported that his prescribing physician will not refill his narcotics because this physician is under investigation by the [facility]. 21:30 CT scan indicates 2 Milan mannie fractures which are new when compared to prior CT scan on 01/31/2022. Call out to [facility], [facility] states that they will not accept this patient because his surgery was 2019 at [facility] by Dr. Marvin Castle. Records are un able to be obtained, transfer specialist and I discussed CT scan findings and compare notes verbally. Milan mannie fractures are not visualized in CT scan at [facility]. Conclusion as at that Milan mannie fractures are acute. 21:50 discussion with the [facility], they are at capacity and will not accept this patient. 22:00 repeat discussion with [facility], Dr. Zheng involved. 22:47 discussion with [facility]. Call out to Neurosurgery. 23:16 discussion with [facility], accepting physician Dr. Burnett. Will medicate with 4 mg of p.o. Dilaudid. <Cuca De Santiago NP - Last Filed: 02/10/22 23:54> Consultations Consultation #1: [facility] <Cuca De Santiago NP - Last Filed: 02/10/22 23:54> Consultation #2: [facility] <Cuca De Santiago NP - Last Filed: 02/10/22 23:54> MDM - Back Pain/Injury MDM Narrative Medical decision making narrative: Fracture, subluxation <Cuca De Santiago NP - Last Filed: 02/10/22 23:54> Differential Diagnosis Differential diagnosis: Likely lumbar radiculopathy and sciatica <Cuca De Santiago NP - Last Filed: 02/10/22 23:54> Medical Records Attestation: I reviewed the patient's medical records. <Cuca De Santiago NP - Last Filed: 02/10/22 23:54> Lab Data Attestation: I reviewed the patient's lab results. <Cuca De Santiago NP - Last Filed: 02/10/22 23:54> Result diagrams: : 02/10/22 20:58 02/10/22 20:58 <Cuca De Santiago NP - Last Filed: 02/10/22 23:54> Labs: Lab Results 02/10/22 02/10/22 02/10/22 Range/Units 20:58 20:58 21:37 WBC 4.3 L (4.8-10.8) X10*3/uL RBC 5.10 (4.60-5.80) X10*6/uL Hgb 12.1 L (14.0-18.0) g/dl Hct 39.6 L (42.0-52.0) % MCV 77.6 L (80.0-98.0) fL MCH 23.7 L (27.0-33.0) pg MCHC 30.6 L (31.0-36.0) g/dl RDW 17.5 H (11.0-16.0) % Plt Count 128 L D (160-400) X10*3/uL MPV 8.7 L (9.4-12.4) fL Immature Gran % (Auto) 0.2 (0.0-0.4) % Neut % (Auto) 72.6 (45-73) % Lymph % (Auto) 18.4 L (20-40) % Dunn % (Auto) 6.3 (2-11) % Eos % (Auto) 2.3 (0-4) % Baso % (Auto) 0.2 (0-2) % Lymph # (Auto) 0.8 L (1.2-4.9) X10*3/uL Dunn # (Auto) 0.3 (0.1-1.2) X10*3/uL Eos # (Auto) 0.1 (0.0-0.4) X10*3/uL Baso # (Auto) 0.0 (0.0-0.2) X10*3/uL Abs Immat Gran (auto) 0.01 (0.00-0.03) X10*3/uL Absolute Neuts (auto) 3.1 (2.0-8.3) x10*3/uL Absolute Nucleated RBC 0.000 (0.0-0.012) X10*3/uL Nucleated RBC % (auto) 0.0 (0.0-0.2) /100WBC Sodium 139 (135-145) mmol/L Potassium 4.6 D (3.3-5.1) mmol/L Chloride 103 (96-108) mmol/L Carbon Dioxide 26 (22-29) mmol/L Anion Gap 15 (12-20) BUN 23 H D (9-16) mg/dL Creatinine 1.16 (0.5-1.4) mg/dL Estim Creat Clear Calc 83.0 Estimated GFR > 60 Random Glucose 100 (60-115) mg/dL Calcium 9.7 D (8.4-10.2) mg/dL COVID-19 (DAGMAR) Negative (Negative) COVID-19 Clin Com See Note <Cuca De Santiago NP - Last Filed: 02/10/22 23:54> Imaging Data CT scan lumbar spine: Attestation: I personally reviewed and interpreted this imaging study as follows: <Cuca De Santiago NP - Last Filed: 02/10/22 23:54> Radiologist's impression: EXAMINATION: CT LUMBAR SPINE WITHOUT CONTRAST CLINICAL INFORMATION: Increase back pain? COMPARISON: CT lumbar spine 01/31/2022? TECHNIQUE: 2 minutes thin axial and reformatted 2 minutes thin sagittal and coronal images of lumbar spine were obtained without contrast. This CT examination was performed using dose optimization techniques as appropriate, variously including the following: *Automated exposure control *Adjustment of mA and/or kV according to patient size (this includes techniques or standardized protocols for targeted exams where dose is matched to indication/reason for exam; i.e. extremities or head) *Use of iterative reconstruction technique DLP; 646 mGy-cm FINDINGS: There is abnormal segmentation of lumbar spine with sacralized L5 vertebra and a small right T12 rib. There is total. L2 and L3 and partial L1 and L4 corpectomies with long bone graft to the right of the midline. The fusion is stabilized with bilateral pedicular screws from T10, T11, L1, L4 and L5 screws with interconnecting rods. Also visualized are bilateral innominate screws.. A disc spacer is seen at the L4-L5 disc level prosthesis. There is a fracture bilateral vertical rods on sagittal image 36/8 and 67/8 and the level of L4-L5 disc level. Also visualized are left anterolateral 2 rods and screws extending from L3 to L5 vertebra. No change in bony hardware since 01/31/2022. The L5 and the lower thoracic vertebral heights are preserved normal. The disc heights are preserved normal. There is soft tissue edema along lower posterior lumbar spine. There is no vertebral body fractures seen the sacrum appears unremarkable. Visualized iliac bones and SI joints are unremarkable. The spinal canal cannot be evaluated due to significant beam hardening artifact throughout the mid lumbar spine. The lower thoracic and lower spinal canal is patent. There is a left lower lobe compressive atelectasis. Both kidneys are unremarkable. No prevertebral soft tissue swelling or mass seen. CT/CT lumbar spine wo con IMPRESSION: Corpectomy and bone graft insertion essentially L3 and L4 vertebra extending partially to L1 and L4 vertebra. The bone graft is supported by 2 long posterior Milan rods and screws. The 2 posterior vertical rods are fractured. The right mannie is newly fractured. Not much has changed in the left mannie fracture from the last exam 01/31/2022. ? Also visualized are 2 left anterolateral rods and screws which appear stable. <Cuca De Santiago NP - Last Filed: 02/10/22 23:54> Critical Care Time Critical Care Time Critical Care Time: Yes <Cuca De Santiago NP - Last Filed: 02/10/22 23:54> Total Critical Care Time: 45 <Cuca De Santiago NP - Last Filed: 02/10/22 23:54> Attestation: I have personally provided critical care time exclusive of time spent on separately billable procedures. Time includes review of laboratory data, radiology results, discussion with consultants, and monitoring for potential decompensation. Interventions were performed as documented. <Cuca De Santiago NP - Last Filed: 02/10/22 23:54> Discharge Plan Discharge Clinical Impression: Mechanical breakdown of internal orthopedic device, Acute lumbar back pain <Cuca De Santiago NP - Last Filed: 02/10/22 23:54> Patient Disposition: [facility] <Cuca De Santiago NP - Last Filed: 02/10/22 23:54> Transfer Details: [facility], Dr Burnett <Cuca De Santiago NP - Last Filed: 02/10/22 23:54> Instructions: Acute Low Back Pain (ED) <Cuca De Santiago NP - Last Filed: 02/10/22 23:54> Additional Instructions: You are being transferred to [facility] for bilateral Milan mannie fractures of the lumbar spine <Cuca De Santiago NP - Last Filed: 02/10/22 23:54> Interventions: Acute Care Transfer Worksheet (ED) Last Done: 02/11/22 00:48 <Cuca De Santiago NP - Last Filed: 02/10/22 23:54> Discharge Date/Time: 02/11/22 00:51 <Cuca De Santiago NP - Last Filed: 02/10/22 23:54>
[2022-02-10 20:19] VITALS: BP 118/81; PULSE 71; RESP 16; TEMP 36.6; O2SAT 100
--- NOTE | 2022-02-10 20:25 | PC.NURSE ---
PHLEBOTOMY AT BEDSIDE TO DRAW LABS. URINE REQUESTED. WATER GIVEN.
[2022-02-10 21:04] LABS: MANUAL DIFF FLAG NO
[2022-02-10 21:06] LABS: Basophils Percent Auto 0.2 % (0-2); Eosinophils Absolute Auto 0.1 X10*3/uL (0.0-0.4); Eosinophils Percent Auto 2.3 % (0-4); Hematocrit 39.6 % (42.0-52.0); Hemoglobin 12.1 g/dl (14.0-18.0); Imm Gran Abs Auto 0.01 X10*3/uL (0.00-0.03); Imm Gran Pct Auto 0.2 % (0.0-0.4); Lymphocytes Absolute Auto 0.8 X10*3/uL (1.2-4.9); Lymphocytes Percent Auto 18.4 % (20-40); Mean Corpuscular HGB Conc 30.6 g/dl (31.0-36.0); Mean Corpuscular Hemoglobin 23.7 pg (27.0-33.0); Mean Corpuscular Volume 77.6 fL (80.0-98.0); Mean Platelet Volume 8.7 fL (9.4-12.4); Monocytes Absolute Auto 0.3 X10*3/uL (0.1-1.2); Monocytes Percent Auto 6.3 % (2-11); Neutrophils Absolute Auto 3.1 x10*3/uL (2.0-8.3); Neutrophils Percent Auto 72.6 % (45-73); Platelet Count 128 X10*3/uL (160-400); Red Cell Distribution Width 17.5 % (11.0-16.0); White Blood Count 4.3 X10*3/uL (4.8-10.8)
[2022-02-10 21:22] LABS: Anion Gap 15 (12-20); Blood Urea Nitrogen 23 mg/dL (9-16); Calcium 9.7 mg/dL (8.4-10.2); Carbon Dioxide 26 mmol/L (22-29); Chloride 103 mmol/L (96-108); Estimated Glomerular Filt Rate > 60; Glucose Random 100 mg/dL (60-115); Potassium 4.6 mmol/L (3.3-5.1); Sodium 139 mmol/L (135-145)
[2022-02-10 22:00] LABS: COVID-19 Test Negative (Negative)
--- NOTE | 2022-02-10 23:14 | PC.NURSE ---
PROVIDER CALLING [facility] FOR TRANSFER. [facility] AND [facility] DECLINED.
[2022-02-10 23:37] VITALS: BP 140/84; PULSE 77; RESP 17; O2SAT 100
--- NOTE | 2022-02-11 00:15 | PC.NURSE ---
REPORT CALLED TO [facility] [employer]JUR[employer] LEGAL ASSISTANT. #[phone]
== END 2022-02-11 00:51 | disposition short-term general hospital (02) ==
PROVIDERS: Nurse Practitioner Family; Emergency Provider Emergency Medicine; PCP Family Medicine
DX: G89.11 Acute pain due to trauma (principal); M54.50 Low back pain, unspecified; T84.216A Breakdown (mechanical) of internal fixation device of vertebrae, initial encounter; Y82.8 Other medical devices associated with adverse incidents; F17.200 Nicotine dependence, unspecified, uncomplicated; F11.20 Opioid dependence, uncomplicated; Z20.822 Contact with and (suspected) exposure to COVID-19
CPT/HCPCS: 36415; 72131; 80048; 85025; 87635; 99285; 99291